=== PATIENT | female | born 1995 | race Caucasian/White ===

== ENCOUNTER 2016-12-04 23:50 | Emergency (ER) | payer OTHER ==
[~2016-12-04 23:50] MED LIST: MOTR200T44 PO; NORC5TAB PO; PREN1TAB11 PO; TYLE325T5 PO
--- NOTE | 2016-12-05 01:04 | EDDOCDS ---
Physician Documentation [facility] Name: Jon Shane Age: 21 yrs Sex: Female : 1995 Arrival Date: 12/04/2016 Time: 23:50 Bed I1 / M1 Private MD: Sarai Murphy NP Disposition: 12/05/16 00:54 Discharged to Home/Self Care. Impression: Headache - ingrown hair of scalp . - Condition is Stable. - Discharge Instructions: General Headache Without Cause, Ingrown Hair. - Medication Reconciliation, Local Pharmacy Hours form. - Follow up: Sarai Murphy; When: Call to arrange an appointment; Reason: Recheck today's complaints, Continuance of care. - Problem is new. - Symptoms are unchanged. Historical: - Allergies: PENICILLINS (Rash); - Home Meds: 1. none - PMHx: ADHD; Seizures; - PSHx: D & C; Tonsillectomy; - Social history: Smoking status: Patient uses tobacco products, heavy tobacco smoker. No barriers to communication noted, The patient speaks fluent Italian. - Family history: Not pertinent. - : The pt / caregiver states he / she is not on anticoagulants. Home medication list is obtained from the patient. - Exposure Risk Screening:: None identified. 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 4 in. (162.56 cm) (R); Pain 8/10; 23:51 Body Mass Index 36.39 (96.16 kg, 162.56 cm) lr2 Signatures: Shannan Dodge RN RN Mario De La Fuente LPN LPN mf4 Misha Chatman PA PA mo1 MTDD
--- NOTE | 2016-12-05 01:04 | EDDOCDS ---
Nurse's Notes [facility] Name: Jon Shane Age: 21 yrs Sex: Female : 1995 Arrival Date: 12/04/2016 Time: 23:50 Bed I1 / M1 Private MD: Sarai Murphy NP Diagnosis: Headache-ingrown hair of scalp Presentation: 12/04 23:55 Presenting complaint: Patient states: Has small bump on right side of head--has been mcp getting bigger over last week. Has been getting migraine headaches. This patient has no additional risk factors. Adult Sepsis Screening: The patient does not have new or worsening altered mentation. Patient's respiratory rate is less than 22. Systolic blood pressure is greater than 100. Patient has a qSOFA score of 0- Negative Sepsis Screen. Suicide/Homicide risk assessment- the patient denies having any suicidal and/or homicidal ideations and does not present with any other emotional, behavioral or mental health complaints. Status: Patient is not a cooler servicer or dependent. Transition of care: patient was not received from another setting of care. 23:55 Acuity: CASS Level 4 [facility] 23:55 Method Of Arrival: Walkin/Carried/Asstd [facility] Triage Assessment: 23:57 Headache History: This headache is more severe than any previous headaches the patient [facility] has experienced. General: Appears uncomfortable, Behavior is cooperative. Pain: Location: head Pain currently is 9 out of 10 on a pain scale. Pain began week ago. HIV screening NA for this visit Offered previously. Neurological: Level of Consciousness is awake, alert, Reports headache. Respiratory: No deficits noted. Derm: Skin is pink, warm & dry. 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 none - PMHx: ADHD; Seizures; - PSHx: D & C; Tonsillectomy; - Social history: Smoking status: Patient uses tobacco products, heavy tobacco smoker. No barriers to communication noted, The patient speaks fluent Chilean. - Family history: Not pertinent. - : The pt / caregiver states he / she is not on anticoagulants. Home medication list is obtained from the patient. - Exposure Risk Screening:: None identified. Screenin/26 01:01 Screening information is obtained from the patient. Fall risk: No risks identified. mf4 Assistance ADL's: requires no assistance with activities of daily living. Abuse/DV Screen: The patient / caregiver reports he/she is: not in a situation that causes fear, pain or injury. Nutritional screening: No deficits noted. Advance Directives: Unable to assess Advance Directive status due to pt condition. home support is adequate. Assessment: 01:01 Pain: Denies pain. mf4 Vital Signs: 12/04 23:51 BP 135 / 70; Pulse 88; Resp 16; Temp 97.2(O); Pulse Ox 100% on R/A; Weight 96.16 kg lr2 (R); Height 5 ft. 4 in. (162.56 cm) (R); Pain 8/10; 23:51 Body Mass Index 36.39 (96.16 kg, 162.56 cm) lr2 Vitals: 23:51 Log In Time: December 04, 2016 at 23:50. lr2 ED Course: 23:51 Patient visited by Ela Blue. lr2 23:51 Patient moved to Waiting lr2 23:53 Sarai Murphy is Private Physician. lr2 23:53 Patient moved to Pre RCE lr2 23:56 Triage Initiated mcp 23:57 Patient visited by Shannan Dodge RN. [facility] 12/05 00:27 Patient moved to I1 / M1 kmg1 00:39 Misha Chatman PA is PHCP. mo1 00:39 Rich Angeles DO is Attending Physician. mo1 00:46 Patient visited by Misha Chatman PA. mo1 00:54 Sarai Murphy is Referral Physician. mo1 01:01 The patient / caregiver is instructed regarding the plan of care and ED course. mf4 01:01 No IV's were initiated during this patient's visit. No procedures done that require mf4 assistance. Order Results: There are currently no results for this order. Outcome: 00:54 Discharge ordered by Provider. mo1 01:01 Discharge Assessment: Patient awake, alert and oriented x 3. No cognitive and/or mf4 functional deficits noted. Patient verbalized understanding of disposition instructions. patient administered narcotics - no. The following High Risk Discharge criteria are identified: None. Discharged to home ambulatory. Condition: stable. Discharge instructions given to patient, Instructed on discharge instructions, follow up and referral plans. Demonstrated understanding of instructions, Pt was receptive of discharge instructions/ teaching. No special radiology studies were completed. Property sent home with patient. 01:03 Patient left the ED. 4 Signatures: Judy Natarajan RN RN km Shannan Dodge RN RN mcp Ferringo, Michele,MEDICAL CERTIFICATION SPECIALIST MEDICAL CERTIFICATION SPECIALIST 4 Misha Chatman PA PA mo1 Ross, Laura lr2 MTDD
--- NOTE | 2016-12-07 02:04 | EDDOCDS ---
Physician Documentation [facility] Name: Jon Shane Age: 21 yrs Sex: Female : 1995 Arrival Date: 12/04/2016 Time: 23:50 Bed I1 / M1 Private MD: Sarai Murphy NP Disposition: 12/05/16 00:54 Discharged to Home/Self Care. Impression: Headache - ingrown hair of scalp . - Condition is Stable. - Discharge Instructions: General Headache Without Cause, Ingrown Hair. - Medication Reconciliation, Local Pharmacy Hours form. - Follow up: Sarai Murphy; When: Call to arrange an appointment; Reason: Recheck today's complaints, Continuance of care. - Problem is new. - Symptoms are unchanged. Historical: - Allergies: PENICILLINS (Rash); - Home Meds: 1. none - PMHx: ADHD; Seizures; - PSHx: D & C; Tonsillectomy; - Social history: Smoking status: Patient uses tobacco products, heavy tobacco smoker. No barriers to communication noted, The patient speaks fluent Fijian. - Family history: Not pertinent. - : The pt / caregiver states he / she is not on anticoagulants. Home medication list is obtained from the patient. - Exposure Risk Screening:: None identified. 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 4 in. (162.56 cm) (R); Pain 8/10; 23:51 Body Mass Index 36.39 (96.16 kg, 162.56 cm) lr2 MDM: 12/05 02:39 [facility] Payment Agreement was scanned into [employer] and attached to record. hs2 08:20 T-Sheet-- Draft Copy was scanned into [employer] and attached to record. [facility] Signatures: Shannan Dodge RN RN Mario De La Fuente LPN LPN mf4 Misha Chatman PA PA mo1 Kaylee Wilder, Reg Reg hs2 Unique Gardiner se The chart was reviewed and I authenticate all verbal orders and agree with the evaluation and treatment provided.Attachments: 02:39 [facility] Payment Agreement hs2 08:20 T-Sheet-- Draft Copy [facility] Chart Complete MTDD
--- NOTE | 2016-12-07 02:04 | EDDOCDS ---
Nurse's Notes [facility] Name: Jon Shane Age: 21 yrs Sex: Female : 1995 Arrival Date: 12/04/2016 Time: 23:50 Bed I1 / M1 Private MD: Sarai Murphy NP Diagnosis: Headache-ingrown hair of scalp Presentation: 12/04 23:55 Presenting complaint: Patient states: Has small bump on right side of head--has been mcp getting bigger over last week. Has been getting migraine headaches. This patient has no additional risk factors. Adult Sepsis Screening: The patient does not have new or worsening altered mentation. Patient's respiratory rate is less than 22. Systolic blood pressure is greater than 100. Patient has a qSOFA score of 0- Negative Sepsis Screen. Suicide/Homicide risk assessment- the patient denies having any suicidal and/or homicidal ideations and does not present with any other emotional, behavioral or mental health complaints. Status: Patient is not a advisory services associate or dependent. Transition of care: patient was not received from another setting of care. 23:55 Acuity: CASS Level 4 [facility] 23:55 Method Of Arrival: Walkin/Carried/Asstd [facility] Triage Assessment: 23:57 Headache History: This headache is more severe than any previous headaches the patient [facility] has experienced. General: Appears uncomfortable, Behavior is cooperative. Pain: Location: head Pain currently is 9 out of 10 on a pain scale. Pain began week ago. HIV screening NA for this visit Offered previously. Neurological: Level of Consciousness is awake, alert, Reports headache. Respiratory: No deficits noted. Derm: Skin is pink, warm & dry. 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 none - PMHx: ADHD; Seizures; - PSHx: D & C; Tonsillectomy; - Social history: Smoking status: Patient uses tobacco products, heavy tobacco smoker. No barriers to communication noted, The patient speaks fluent Macanese. - Family history: Not pertinent. - : The pt / caregiver states he / she is not on anticoagulants. Home medication list is obtained from the patient. - Exposure Risk Screening:: None identified. Screenin/26 01:01 Screening information is obtained from the patient. Fall risk: No risks identified. mf4 Assistance ADL's: requires no assistance with activities of daily living. Abuse/DV Screen: The patient / caregiver reports he/she is: not in a situation that causes fear, pain or injury. Nutritional screening: No deficits noted. Advance Directives: Unable to assess Advance Directive status due to pt condition. home support is adequate. Assessment: 01:01 Pain: Denies pain. mf4 Vital Signs: 12/04 23:51 BP 135 / 70; Pulse 88; Resp 16; Temp 97.2(O); Pulse Ox 100% on R/A; Weight 96.16 kg lr2 (R); Height 5 ft. 4 in. (162.56 cm) (R); Pain 8/10; 23:51 Body Mass Index 36.39 (96.16 kg, 162.56 cm) lr2 Vitals: 23:51 Log In Time: December 04, 2016 at 23:50. lr2 ED Course: 23:51 Patient visited by Ela Blue. lr2 23:51 Patient moved to Waiting lr2 23:53 Sarai Murphy is Private Physician. lr2 23:53 Patient moved to Pre RCE lr2 23:56 Triage Initiated [facility] 23:57 Patient visited by Shannan Dodge RN. [facility] 12/05 00:27 Patient moved to I1 / M1 kmg1 00:39 Misha Chatman PA is PHCP. mo1 00:39 Rich Angeles DO is Attending Physician. mo1 00:46 Patient visited by Misha Cahtman PA. mo1 00:54 Sarai Murphy is Referral Physician. mo1 01:01 The patient / caregiver is instructed regarding the plan of care and ED course. mf4 01:01 No IV's were initiated during this patient's visit. No procedures done that require mf4 assistance. 02:39 [facility] Payment Agreement was scanned into [employer] and attached to record. hs2 08:20 T-Sheet-- Draft Copy was scanned into [employer] and attached to record. [facility] Order Results: There are currently no results for this order. Outcome: 00:54 Discharge ordered by Provider. mo1 01:01 Discharge Assessment: Patient awake, alert and oriented x 3. No cognitive and/or mf4 functional deficits noted. Patient verbalized understanding of disposition instructions. patient administered narcotics - no. The following High Risk Discharge criteria are identified: None. Discharged to home ambulatory. Condition: stable. Discharge instructions given to patient, Instructed on discharge instructions, follow up and referral plans. Demonstrated understanding of instructions, Pt was receptive of discharge instructions/ teaching. No special radiology studies were completed. Property sent home with patient. 01:03 Patient left the ED. 4 Signatures: Judy Natarajan RN RN km Shannan Dodge RN RN Mario De La Fuente,MERCHANDISING EXECUTION MANAGER MERCHANDISING EXECUTION MANAGER 4 Misha Chatman PA PA mo1 Kaylee Wilder, Reg Reg hs2 [place], Ela Winslow lr2 Chart Complete MTDD
--- NOTE | 2016-12-07 02:04 | EDDOCDS ---
Physician Documentation [facility] Name: Jon Shane Age: 21 yrs Sex: Female : 1995 Arrival Date: 12/04/2016 Time: 23:50 Bed I1 / M1 Private MD: Sarai Murphy NP Disposition: 12/05/16 00:54 Discharged to Home/Self Care. Impression: Headache - ingrown hair of scalp . - Condition is Stable. - Discharge Instructions: General Headache Without Cause, Ingrown Hair. - Medication Reconciliation, Local Pharmacy Hours form. - Follow up: Sarai Murphy; When: Call to arrange an appointment; Reason: Recheck today's complaints, Continuance of care. - Problem is new. - Symptoms are unchanged. Historical: - Allergies: PENICILLINS (Rash); - Home Meds: 1. none - PMHx: ADHD; Seizures; - PSHx: D & C; Tonsillectomy; - Social history: Smoking status: Patient uses tobacco products, heavy tobacco smoker. No barriers to communication noted, The patient speaks fluent Tunisian. - Family history: Not pertinent. - : The pt / caregiver states he / she is not on anticoagulants. Home medication list is obtained from the patient. - Exposure Risk Screening:: None identified. 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 4 in. (162.56 cm) (R); Pain 8/10; 23:51 Body Mass Index 36.39 (96.16 kg, 162.56 cm) lr2 MDM: 12/05 02:39 [facility] [place] Agreement was scanned into [employer] and attached to record. hs2 08:20 T-Sheet-- Draft Copy was scanned into [employer] and attached to record. [facility] Signatures: Shannan Dodge RN RN Mario De La Fuente LPN LPN mf4 Misha Chatman PA PA mo1 Kaylee Wilder, Reg Reg hs2 Unique Gardiner se The chart was reviewed and I authenticate all verbal orders and agree with the evaluation and treatment provided.Attachments: 02:39 [facility] Payment Agreement hs2 08:20 T-Sheet-- Draft Copy [facility] Chart Complete MTDD
== END 2016-12-05 01:03 | disposition home or self-care (01) ==
LOC: M ED 23:50
DX: L73.1 Pseudofolliculitis barbae (principal); F90.9 Attention-deficit hyperactivity disorder, unspecified type; R56.9 Unspecified convulsions; Z72.0 Tobacco use; Z88.0 Allergy status to penicillin

== ENCOUNTER 2017-02-14 16:01 | Emergency (ER) | payer OTHER ==
[~2017-02-14] VITALS: Ht 162.6 cm; Wt 97.1 kg
[~2017-02-14 16:01] MED LIST changes: +NORC1TAB4 PO; -NORC5TAB PO
[2017-02-14 17:52] VITALS: BP 138/65
--- NOTE | 2017-02-15 06:49 | REP ---
Left ankle series: Four views. History: Trauma. Findings: Four views of the left ankle demonstrate intact ankle mortise. No fracture or subluxation is seen. Impression: No abnormality noted. Signed by Daren Estrada MD 02/15/2017 08:25 A
--- NOTE | 2017-02-15 06:50 | REP ---
Left foot series: Four views. History: Trauma. Findings: Four views of the left foot show overall normal mineralization. Bones, joints, and soft tissues are radiographically unremarkable. No fracture or subluxation is seen. Impression: Negative left foot views. Signed by Daren Estrada MD 02/15/2017 08:25 A
== END 2017-02-14 18:13 | disposition home or self-care (01) ==
LOC: M ED 16:48
DX: S83.92XA Sprain of unspecified site of left knee, initial encounter (principal); S93.602A Unspecified sprain of left foot, initial encounter; W10.8XXA Fall (on) (from) other stairs and steps, initial encounter; Y92.099 Unspecified place in other non-institutional residence as the place of occurrence of the external cause; Y93.01 Activity, walking, marching and hiking; Y99.8 Other external cause status; J45.909 Unspecified asthma, uncomplicated; F32.9 Major depressive disorder, single episode, unspecified; Z88.0 Allergy status to penicillin

== ENCOUNTER 2017-03-12 09:01 | Emergency (ER) | payer OTHER ==
[2017-03-12 09:18] VITALS: BP 126/70
[2017-03-12 10:04] LABS: CONTROL LINE HCG INT CTR LINE PRESENT
[2017-03-12 10:38] LABS: BASO % 0.4 % (0.0-1.0); EOS # 0.2 K/mm3 (0.0-0.50); EOS % 2.7 % (0.0-3.0); LARGE UNSTAINED CELL # 0.1 K/mm3 (0.0-0.4); LYMPH # 1.5 K/mm3 (1.5-6.5); LYMPH % 19.1 % (24.0-44.0); MEAN CORPUSCULAR HEMOGLOBIN 28.1 pg (27.0-33.0); MEAN CORPUSCULAR HGB CONC 32.7 g/dl (32.0-36.5); MEAN CORPUSCULAR VOLUME 85.9 fl (80.0-96.0); MONO # 0.5 K/mm3 (0.0-0.8); NEUTROPHILS # 5.4 K/mm3 (1.8-7.7); NEUTROPHILS % 70.9 % (36.0-66.0); PLATELET COUNT, AUTOMATED 259 k/mm3 (150-450); RED CELL DISTRIBUTION WIDTH 13.7 % (11.5-14.5); WHITE BLOOD COUNT 7.6 K/mm3 (4.0-10.0)
== END 2017-03-12 10:22 | disposition home or self-care (01) ==
LOC: EDBD 09:01 → M ED 09:40
DX: N92.0 Excessive and frequent menstruation with regular cycle (principal); J45.909 Unspecified asthma, uncomplicated; Z88.0 Allergy status to penicillin; Z91.013 Allergy to seafood

== ENCOUNTER 2017-03-12 18:25 | Emergency (ER) | payer OTHER ==
[~2017-03-12] VITALS: Ht 162.6 cm; Wt 92.4 kg
[2017-03-12 18:26] VITALS: BP 152/84
== END 2017-03-12 19:52 | disposition left against medical advice (07) ==
LOC: M ED 18:25
DX: Z20.2 Contact with and (suspected) exposure to infections with a predominantly sexual mode of transmission (principal); Z53.29 Procedure and treatment not carried out because of patient's decision for other reasons

== ENCOUNTER 2017-05-18 23:14 | Emergency (ER) | payer OTHER ==
[~2017-05-18] VITALS: Ht 162.6 cm; Wt 86.0 kg
[2017-05-18 23:15] VITALS: BP 126/69
[2017-08-15] MEDS ORDERED: CLEO300C2 PO (01:26)
== END 2017-05-19 01:36 | disposition left against medical advice (07) ==
LOC: M ED 23:14
DX: Z53.29 Procedure and treatment not carried out because of patient's decision for other reasons (principal)

== ENCOUNTER 2017-05-21 22:37 | Emergency (ER) | payer OTHER ==
[~2017-05-21] VITALS: Ht 162.6 cm; Wt 78.1 kg
[2017-05-21 22:39] VITALS: BP 125/67
[2017-05-21] MEDS ORDERED: TYLE500T78 PO (22:44)
[2017-05-21] MEDS ORDERED: CYCL10TA PO (22:58)
[2017-05-21] MEDS ORDERED: NAPR500T PO (22:58)
[2017-05-21] MEDS ORDERED: CARISOPRODOL 350 MG TAB PO ONE (23:00)
[2017-05-21] MEDS ORDERED: NAPROXEN 250 MG TAB PO ONE (23:00)
[2017-08-15] MEDS ORDERED: CLEO300C2 PO (01:26)
== END 2017-05-21 23:10 | disposition home or self-care (01) ==
LOC: M ED 22:37
DX: S39.012A Strain of muscle, fascia and tendon of lower back, initial encounter (principal); X50.9XXA Other and unspecified overexertion or strenuous movements or postures, initial encounter; Y92.019 Unspecified place in single-family (private) house as the place of occurrence of the external cause; Y93.89 Activity, other specified; Y99.8 Other external cause status; J45.909 Unspecified asthma, uncomplicated; F17.200 Nicotine dependence, unspecified, uncomplicated; Z88.0 Allergy status to penicillin; Z88.1 Allergy status to other antibiotic agents; Z91.030 Bee allergy status

== ENCOUNTER 2017-05-22 04:46 | Emergency (ER) | payer OTHER ==
[~2017-05-22 04:46] MED LIST changes: +CYCL10TA PO; +NAPR500T PO; +TYLE500T78 PO
[2017-05-22 04:50] VITALS: BP 120/64
[2017-05-22] MEDS ORDERED: ONDANSETRON 4 MG ORAL DISINTEGRATING TAB (S0181) PO ONE (06:45)
[2017-08-15] MEDS ORDERED: CLEO300C2 PO (01:26)
== END 2017-05-22 07:37 | disposition home or self-care (01) ==
LOC: M ED 04:46
DX: R11.2 Nausea with vomiting, unspecified (principal); T42.8X5A Adverse effect of antiparkinsonism drugs and other central muscle-tone depressants, initial encounter; T39.315A Adverse effect of propionic acid derivatives, initial encounter; Z88.0 Allergy status to penicillin

== ENCOUNTER → 2017-07-05 | Outpatient (CLI) | payer OTHER ==
[~2017-07-05] MED LIST changes: +CLEO300C2 PO
[2017-07-05 19:14] LABS: LUTEINIZING HORMONE 8.6 mIU/mL; PROGESTERONE 2.3 NG/ML
[2017-07-05 19:15] LABS: FOLLICLE STIMULATING HORMONE 6.6 mIU/mL; FREE T4 0.83 NG/DL (0.76-1.46)
== END ==
LOC: M SMT 14:52
PROVIDERS: ATTEND Specialist
DX: N93.8 Other specified abnormal uterine and vaginal bleeding (principal)

== ENCOUNTER → 2017-12-12 | Outpatient (CLI) | payer OTHER ==
[~2017-12-12] MED LIST changes: -CLEO300C2 PO; -CYCL10TA PO; +METHACHOLINE KIT (J7674) INH; -MOTR200T44 PO; -NAPR500T PO; -NORC1TAB4 PO; -PREN1TAB11 PO; -TYLE325T5 PO; -TYLE500T78 PO
[2017-12-12 14:25] LABS: HEMATOCRIT 37.3 % (36.0-47.0); HEMOGLOBIN 12.6 g/dl (12.0-16.0); MEAN CORPUSCULAR HEMOGLOBIN 28.5 pg (27.0-33.0); MEAN CORPUSCULAR HGB CONC 33.8 g/dl (32.0-36.5); MEAN CORPUSCULAR VOLUME 84.4 fl (80.0-96.0); PLATELET COUNT, AUTOMATED 274 10^3/uL (150-450); RED BLOOD COUNT 4.42 10^6/uL (4.00-5.40); WHITE BLOOD COUNT 8.3 10^3/uL (4.0-10.0)
[2017-12-12 15:02] LABS: ESTIMATED AVERAGE GLUCOSE 117 MG/DL (60-110); HEMOGLOBIN A1c 5.7 %
[2017-12-12 15:17] LABS: ALBUMIN 3.6 GM/DL (3.2-5.2); ALBUMIN/GLOBULIN RATIO 1.16 (1.00-1.93); ALKALINE PHOSPHATASE 76 U/L (45-117); ALT/SGPT 17 U/L (12-78); ANION GAP 7 MEQ/L (8-16); AST/SGOT 9 U/L (7-37); BILIRUBIN,TOTAL 0.2 MG/DL (0.2-1.0); BLOOD UREA NITROGEN 4 MG/DL (7-18); CALCIUM LEVEL 8.8 MG/DL (8.5-10.1); CARBON DIOXIDE LEVEL 26 MEQ/L (21-32); CHLORIDE LEVEL 106 MEQ/L (98-107); CHOLESTEROL LEVEL 133 MG/DL (<200); CHOLESTEROL RISK RATIO 3.325 (<5); CREATININE FOR GFR 0.44 MG/DL (0.55-1.30); GLOMERULAR FILTRATION RATE > 60.0 (>60); GLUCOSE, FASTING 79 MG/DL (70-100); HDL CHOLESTEROL 40 MG/DL (>40); LDL CHOLESTEROL 75.8 MG/DL (<100); NON-HDL-C 93 MG/DL; POTASSIUM SERUM 4.3 MEQ/L (3.5-5.1); SODIUM LEVEL 139 MEQ/L (136-145); TOTAL PROTEIN 6.7 GM/DL (6.4-8.2); TRIGLYCERIDES LEVEL 86 MG/DL (<150)
== END ==
LOC: M LAB 13:41
DX: Z87.09 Personal history of other diseases of the respiratory system (principal)
CPT/HCPCS: 94010

== ENCOUNTER 2018-01-03 21:35 | Emergency (ER) | payer OTHER ==
[2018-01-03] MEDS ORDERED: NS 1,000 ML IV (21:45)
[2018-01-03] MEDS: NS 1,000 ML IV (21:45)
[2018-01-03] MEDS: ONDANSETRON 4MG/2ML VIAL (J2405) IV (21:45)
[2018-01-03] MEDS ORDERED: METOCLOPRAMIDE INJ 10MG/2ML VIAL (J2765) IV (21:45)
[2018-01-03 22:35] LABS: BASO # 0.1 10^3/uL (0.0-0.2); BASO % 0.5 % (0.0-1.0); EOS # 0.2 10^3/uL (0.0-0.50); EOS % 1.7 % (0.0-3.0); HEMATOCRIT 38.9 % (36.0-47.0); HEMOGLOBIN 13.1 g/dl (12.0-16.0); IMMATURE GRANULOCYTE % 0.5 % (0-3.0); LYMPH # 2.7 10^3/uL (1.5-6.5); LYMPH % 24.8 % (24.0-44.0); MEAN CORPUSCULAR HEMOGLOBIN 28.6 pg (27.0-33.0); MEAN CORPUSCULAR HGB CONC 33.7 g/dl (32.0-36.5); MEAN CORPUSCULAR VOLUME 84.9 fl (80.0-96.0); MONO # 0.6 10^3/uL (0.0-0.8); MONO % 5.8 % (0.0-5.0); NEUTROPHILS # 7.3 10^3/uL (1.8-7.7); NEUTROPHILS % 66.7 % (36.0-66.0); PLATELET COUNT, AUTOMATED 290 10^3/uL (150-450); RED BLOOD COUNT 4.58 10^6/uL (4.00-5.40); RED CELL DISTRIBUTION WIDTH 14.1 % (11.5-14.5); WHITE BLOOD COUNT 10.9 10^3/uL (4.0-10.0)
[2018-01-03 23:12] LABS: ALBUMIN 3.5 GM/DL (3.2-5.2); ALBUMIN/GLOBULIN RATIO 0.92 (1.00-1.93); ALKALINE PHOSPHATASE 86 U/L (45-117); ALT/SGPT 12 U/L (12-78); ANION GAP 10 MEQ/L (8-16); AST/SGOT 8 U/L (7-37); BILIRUBIN,DIRECT < 0.1 MG/DL (0.0-0.2); BILIRUBIN,TOTAL 0.1 MG/DL (0.2-1.0); BLOOD UREA NITROGEN 5 MG/DL (7-18); CALCIUM LEVEL 8.8 MG/DL (8.5-10.1); CARBON DIOXIDE LEVEL 22 MEQ/L (21-32); CHLORIDE LEVEL 109 MEQ/L (98-107); CREATININE FOR GFR 0.44 MG/DL (0.55-1.30); GLOMERULAR FILTRATION RATE > 60.0 (>60); GLUCOSE, FASTING 76 MG/DL (70-100); HCG, SERUM QUANTITATIVE 62412 MIU/ML; SODIUM LEVEL 141 MEQ/L (136-145); TOTAL PROTEIN 7.3 GM/DL (6.4-8.2)
[2018-01-03 23:50] LABS: KETONE, URINE AUTO RFX TRACE mg/dL (NEGATIVE); MUCUS, URINE RFX SMALL (NEGATIVE); NITRITE, URINE AUTO RFX NEGATIVE (NEGATIVE); RBC, URINE AUTO RFX 12 /HPF (0-3); SPECIFIC GRAVITY UR AUTO RFX 1.021 (1.002-1.035); SQUAM EPITHELIAL CELL UR AURFX 2 /HPF (0-6); WBC, URINE AUTO RFX 2 /HPF (0-3)
[2018-01-03 23:51] LABS: LEUKOCYTE ESTERASE UR AUTO RFX TRACE (NEGATIVE)
== END 2018-01-04 00:36 | disposition home or self-care (01) ==
LOC: M ED 01-04 00:36
DX: O26.891 Other specified pregnancy related conditions, first trimester (principal); O99.331 Smoking (tobacco) complicating pregnancy, first trimester; Z3A.13 13 weeks gestation of pregnancy; Z88.0 Allergy status to penicillin; Z91.030 Bee allergy status
CPT/HCPCS: J2405

== ENCOUNTER → 2018-02-15 | Outpatient (CLI) | payer OTHER ==
[2018-02-15 18:41] LABS: TOTAL 25(OH) VITAMIN D 13.7 NG/ML (30.0-100.0)
[2018-02-15 18:52] LABS: FREE THYROXINE INDEX 3.5 % (1.3-4.8); T UPTAKE 22 % (30-39)
== END ==
LOC: M SMT 13:29
DX: F32.89 Other specified depressive episodes (principal)
CPT/HCPCS: 84443

== ENCOUNTER → 2018-02-15 | Outpatient (CLI) | payer OTHER ==
[2018-02-15 19:29] LABS: BASO % 0.3 % (0.0-1.0); EOS # 0.1 10^3/uL (0.0-0.50); EOS % 1.2 % (0.0-3.0); HEMATOCRIT 36.9 % (36.0-47.0); HEMOGLOBIN 12.3 g/dl (12.0-15.5); IMMATURE GRANULOCYTE % 0.8 % (0-3.0); LYMPH # 1.8 10^3/uL (1.5-6.5); LYMPH % 17.7 % (24.0-44.0); MEAN CORPUSCULAR HEMOGLOBIN 29.6 pg (27.0-33.0); MEAN CORPUSCULAR HGB CONC 33.3 g/dl (32.0-36.5); MEAN CORPUSCULAR VOLUME 88.7 fl (80.0-96.0); MONO # 0.6 10^3/uL (0.0-0.8); MONO % 5.7 % (0.0-5.0); NEUTROPHILS # 7.6 10^3/uL (1.8-7.7); NEUTROPHILS % 74.3 % (36.0-66.0); PLATELET COUNT, AUTOMATED 285 10^3/uL (150-450); RED BLOOD COUNT 4.16 10^6/uL (4.00-5.40); RED CELL DISTRIBUTION WIDTH 14.5 % (11.5-14.5); WHITE BLOOD COUNT 10.3 10^3/uL (4.0-10.0)
[2018-02-15 20:40] LABS: CHLAMYDIA DNA AMPLIFICATION NEGATIVE (NEGATIVE); GC DNA AMPLIFICATION NEGATIVE (NEGATIVE)
[2018-02-17 10:05] LABS: HBsAg Prenatal NEGATIVE (NEGATIVE); RUBELLA IgG QUALITATIVE IMMUNE (IMMUNE)
[2018-02-17 10:19] LABS: HEPATITIS C VIRUS ABY INDEX < 0.0 INDEX (<0.8)
[2018-02-17 10:26] LABS: HIV 1&2 SCREEN CENTAUR NEGATIVE (NEGATIVE)
== END ==
LOC: M SMT 13:26
DX: Z34.81 Encounter for supervision of other normal pregnancy, first trimester (principal); Z3A.09 9 weeks gestation of pregnancy
CPT/HCPCS: 86762

== ENCOUNTER → 2018-02-20 | Outpatient (CLI) | payer OTHER | LOC: M RAD 17:54 | DX: Z34.82 Encounter for supervision of other normal pregnancy, second trimester (principal); Z3A.19 19 weeks gestation of pregnancy | CPT/HCPCS: 76811 ==

== ENCOUNTER 2018-03-23 00:10 | Outpatient (CLI) | payer OTHER ==
[2018-03-23 01:52] LABS: APPEARANCE, URINE CLOUDY (CLEAR); BACTERIA, URINE AUTO NEGATIVE (NEGATIVE); BILIRUBIN, URINE AUTO 2+ (NEGATIVE); BLOOD, URINE BLOOD 1+ (NEGATIVE); CALCIUM OXALATE CRYSTALS LARGE; COLOR, URINE AMBER (YELLOW); GLUCOSE, URINE (UA) AUTO NEGATIVE (NEGATIVE); KETONE, URINE AUTO TRACE mg/dL (NEGATIVE); LEUKOCYTE ESTERASE, URINE AUTO TRACE (NEGATIVE); MUCUS, URINE LARGE (NEGATIVE); NITRITE, URINE AUTO NEGATIVE (NEGATIVE); PROTEIN, URINE AUTO 1+ mg/dL (NEGATIVE); RBC, URINE AUTO 14 /HPF (0-3); SPECIFIC GRAVITY URINE AUTO 1.034 (1.002-1.035); SQUAMOUS EPITHELIAL CELL UR AU 19 /HPF (0-6); WBC, URINE AUTO 1 /HPF (0-3)
== END 2018-03-23 04:10 | disposition home or self-care (01) ==
LOC: M LDO 00:10
DX: O26.892 Other specified pregnancy related conditions, second trimester (principal); R10.30 Lower abdominal pain, unspecified; O26.852 Spotting complicating pregnancy, second trimester; Z3A.23 23 weeks gestation of pregnancy
CPT/HCPCS: 81001

== ENCOUNTER → 2018-04-03 | Outpatient (CLI) | payer OTHER | LOC: M RAD 11:35 | DX: Z34.83 Encounter for supervision of other normal pregnancy, third trimester (principal); Z3A.25 25 weeks gestation of pregnancy | CPT/HCPCS: 76816 ==

== ENCOUNTER → 2018-04-05 | Outpatient (CLI) | payer OTHER | LOC: M RAD 17:56 | DX: M79.644 Pain in right finger(s) (principal); Z3A.25 25 weeks gestation of pregnancy | CPT/HCPCS: 73130 ==

== ENCOUNTER → 2018-06-20 | Outpatient (REF) | payer OTHER | LOC: M LAB REF 17:31 | DX: Z34.83 Encounter for supervision of other normal pregnancy, third trimester (principal) ==

== ENCOUNTER 2018-07-05 18:25 | Outpatient (CLI) | payer OTHER | END 2018-07-05 19:40 | disposition home or self-care (01) | LOC: M LDO 18:25 | DX: O26.893 Other specified pregnancy related conditions, third trimester (principal); Z3A.37 37 weeks gestation of pregnancy | CPT/HCPCS: 59025 ==

== ENCOUNTER 2018-07-10 16:05 | Inpatient (IN) | payer OTHER ==
[2018-07-10] MEDS: miSOPROStol 50 MCG 1/2 TAB (S0191) PO ×2 (17:25→21:37)
[2018-07-10 17:53] LABS: HEMATOCRIT 35.4 % (36.0-47.0); HEMOGLOBIN 11.7 g/dl (12.0-15.5); MEAN CORPUSCULAR HGB CONC 33.1 g/dl (32.0-36.5); MEAN CORPUSCULAR VOLUME 87.6 fl (80.0-96.0); PLATELET COUNT, AUTOMATED 299 10^3/uL (150-450); RED BLOOD COUNT 4.04 10^6/uL (4.00-5.40); RED CELL DISTRIBUTION WIDTH 13.9 % (11.5-14.5); WHITE BLOOD COUNT 11.1 10^3/uL (4.0-10.0)
[2018-07-10 19:08] LABS: AMPHETAMINES URINE REFLEX NEGATIVE (NEGATIVE); BARBITURATES URINE REFLEX NEGATIVE (NEGATIVE); BENZODIAZEPINES URINE REFLEX NEGATIVE (NEGATIVE); CANNABINOIDS URINE REFLEX NEGATIVE (NEGATIVE); COCAINE METABOLITE URINE REFLE NEGATIVE (NEGATIVE); METHADONE URINE REFLEX NEGATIVE (NEGATIVE); OPIATES URINE REFLEX NEGATIVE (NEGATIVE); PHENCYCLIDINE URINE REFLEX NEGATIVE (NEGATIVE)
[2018-07-10] MEDS: NICOTINE 21MG/24HR 1 EA TRANSDERMAL TD (19:34)
[2018-07-10] MEDS ORDERED: LR 1,000 ML IV (23:52)
[2018-07-11] MEDS: OXYTOCIN DRIP 30 UNITS in APPROPRIATE DILUENT 1 EA IV (02:02)
[2018-07-11] MEDS: BUTORPHANOL 2 MG/ML INJ (J0595) IV (05:03)
[2018-07-11] MEDS: PROMETHAZINE INJ 25 MG/ML VIAL (J2550) IV (05:03)
[2018-07-11] MEDS ORDERED: OXYTOCIN DRIP 30 UNITS in APPROPRIATE DILUENT 1 EA IV (06:01)
[2018-07-11] MEDS ORDERED: METHYLERGONOVINE MALEATE 0.2 MG TAB PO (06:15)
[2018-07-11] MEDS ORDERED: ANUSOL HC CREAM 30GM TOP (06:15)
[2018-07-11] MEDS ORDERED: DOCUSATE SODIUM 100 MG CAP PO (06:15)
[2018-07-11] MEDS: MEASLES,MUMPS,RUBELLA VACCINE INJ (MMR-II) (90707) SC (08:12)
[2018-07-11] MEDS: RHOGAM 300 MCG (1500 IU) INJ (J2790) IM (08:13)
[2018-07-11] MEDS: PRENATAL VITAMINS CHEWABLE TABLET PO (08:21)
[2018-07-11] MEDS: DIBUCAINE 1% OINTMENT 30GM TOP (08:22)
[2018-07-11] MEDS ORDERED: ceFAZolin SOD 1 GM in D5W MINI-BAG PLUS 50 ML IV (13:00)
[2018-07-11] MEDS: IBUPROFEN 800 MG TAB PO (16:19)
[2018-07-12] MEDS: PRENATAL VITAMINS CHEWABLE TABLET PO (07:53)
[2018-07-12] MEDS: ACETAMINOPHEN 500 MG TAB PO ×2 (07:54→18:36)
[2018-07-12] MEDS: IBUPROFEN 800 MG TAB PO (13:48)
== END 2018-07-12 18:45 | disposition home or self-care (01) | DRG 560 ==
LOC: M LDI 16:05 → M OBS 07-11 08:02
PROVIDERS: Advanced Practice Midwife
PROC: 3E0DXGC Introduction of Other Therapeutic Substance into Mouth and Pharynx, External Approach (ICD-10-PCS; 2018-07-10)
PROC: 10E0XZZ Delivery of Products of Conception, External Approach (ICD-10-PCS; principal; 2018-07-11)
DX: O99.334 Smoking (tobacco) complicating childbirth (principal); E55.9 Vitamin D deficiency, unspecified; O99.344 Other mental disorders complicating childbirth; Z3A.39 39 weeks gestation of pregnancy; Z37.0 Single live birth; F32.9 Major depressive disorder, single episode, unspecified; F17.210 Nicotine dependence, cigarettes, uncomplicated; Z88.1 Allergy status to other antibiotic agents; Z91.040 Latex allergy status; Z79.899 Other long term (current) drug therapy; O69.81X0 Labor and delivery complicated by cord around neck, without compression, not applicable or unspecified; O99.824 Streptococcus B carrier state complicating childbirth

== ENCOUNTER 2019-09-04 11:55 | Emergency (ER) | payer OTHER ==
[~2019-09-04] VITALS: Ht 162.6 cm; Wt 85.7 kg
[~2019-09-04 11:55] MED LIST changes: +ACET1TAB55 PO; +CLEO300C2 PO; +CYCL10TA PO; +IBUP-1114 PO; +MACR100C43 PO; +MAPA500C PO; -METHACHOLINE KIT (J7674) INH; +MOTR200T44 PO; +NAPR-837 PO; +NORC1TAB7 PO; +PREN1TAB11 PO; +PRENTAB55 PO; +TYLE325T5 PO; +TYLE500T78 PO
[2019-09-04 12:18] VITALS: BP 134/75
[2019-09-04] MEDS ORDERED: NAPR-837 PO (12:22)
[2019-09-04] MEDS ORDERED: CYCL10TA PO (12:22)
== END 2019-09-04 12:35 | disposition home or self-care (01) ==
LOC: M ED 11:55
DX: M54.5 Low back pain (principal); M62.830 Muscle spasm of back; F31.9 Bipolar disorder, unspecified; F17.200 Nicotine dependence, unspecified, uncomplicated; Z88.0 Allergy status to penicillin; Z91.040 Latex allergy status

== ENCOUNTER 2019-11-15 11:40 | Emergency (ER) | payer OTHER ==
--- NOTE | 2019-11-15 12:26 | REP ---
Left foot four views : Comparison is 02/14/2017. There is no fracture or dislocation. Mineralization and joint spaces are normal. There are no calcifications or foreign bodies. Impression: Negative left foot . There is no interval change. Electronically Signed by Romulo Doyle MD 11/15/2019 12:18 P
[2019-11-15 14:47] VITALS: BP 137/59
== END 2019-11-15 14:48 | disposition home or self-care (01) ==
LOC: M ED 11:40
DX: S90.32XA Contusion of left foot, initial encounter (principal); W22.8XXA Striking against or struck by other objects, initial encounter; Y92.018 Other place in single-family (private) house as the place of occurrence of the external cause; J45.909 Unspecified asthma, uncomplicated; Z88.0 Allergy status to penicillin; Z91.030 Bee allergy status; Z91.040 Latex allergy status; F17.210 Nicotine dependence, cigarettes, uncomplicated

== ENCOUNTER → 2019-12-02 | Outpatient (REF) | payer OTHER | LOC: M LAB REF 14:58 | PROVIDERS: ATTEND Physician Assistant Medical | DX: J06.9 Acute upper respiratory infection, unspecified (principal) ==

== ENCOUNTER → 2020-02-12 | Outpatient (REF) | payer OTHER ==
[~2020-02-12] MED LIST changes: +CYCL-707 PO; -CYCL10TA PO
[2020-02-12 14:47] LABS: HEMATOCRIT 38.3 % (36.0-47.0); HEMOGLOBIN 12.4 g/dl (12.0-15.5); MEAN CORPUSCULAR HEMOGLOBIN 27.9 pg (27.0-33.0); MEAN CORPUSCULAR HGB CONC 32.4 g/dl (32.0-36.5); MEAN CORPUSCULAR VOLUME 86.3 fl (80.0-96.0); PLATELET COUNT, AUTOMATED 289 10^3/uL (150-450); RED BLOOD COUNT 4.44 10^6/uL (4.00-5.40); WHITE BLOOD COUNT 12.7 10^3/uL (4.0-10.0)
[2020-02-12 16:02] LABS: CHLAMYDIA DNA AMPLIFICATION NEGATIVE (NEGATIVE); GC DNA AMPLIFICATION NEGATIVE (NEGATIVE)
[2020-02-13 10:44] LABS: HEPATITIS B SURFACE ANTIGEN NEGATIVE (NEGATIVE); HIV 1&2 SCREEN CENTAUR NEGATIVE (NEGATIVE)
== END ==
LOC: M PLALAB 13:18
PROVIDERS: ATTEND Specialist
DX: Z34.81 Encounter for supervision of other normal pregnancy, first trimester (principal)

== ENCOUNTER → 2020-04-01 | Outpatient (CLI) | payer OTHER ==
--- NOTE | 2020-04-01 12:44 | REP ---
OBSTETRIC SONOGRAPHY: HISTORY: Supervision of for anatomy. FINDINGS: Scanning through the gravid uterus demonstrates a single living intrauterine gestation in a variable lie. motion is observed and heart rate is recorded at 152 beats per minute. A grade 1 posterior placenta is seen without evidence of previa or abruption. Amniotic fluid is subjectively normal. Closed cervical length is measured transabdominally at 3.3 cm. No extrauterine abnormalities observed. Question circumvallate placenta configuration. No anomaly is seen. Four-chamber heart view is less than optimally achieved due to position. The following additional anatomic structures are identified and felt to be unremarkable: cranium, choroid plexus, cavum, cerebellum and posterior fossa, nuchal fold face and profile, left and right ventricular outflow tract views, diaphragm, left-sided stomach, abdominal wall cord insertion, three-vessel cord, kidneys and bladder, spine, upper and lower extremities. BIOMETRY CHART: BPD 4.4 cm = 19 weeks 2 days HC 16.9 cm = 19 weeks 4 days AC 15.8 cm = 21 weeks 0 days FL 3.1 cm = 19 weeks 5 days HL 3.0 cm = 19 weeks 5 days HC/AC ratio normal 1.07 Cephalic index normal 0.71. Estimated weight 343 grams, 0 pounds 12 ounces, 80th percentile for 19 weeks 3 days. IMPRESSION: Viable single intrauterine gestation at 20 weeks 2 days by today's composite sonographic criteria. LEONARDO by today's sonography August 17, 2020. Four-chamber heart view less than optimally achieved due to position.
== END ==
LOC: M WHC 08:37
PROVIDERS: ATTEND Specialist
DX: Z34.82 Encounter for supervision of other normal pregnancy, second trimester (principal); Z36.89 Encounter for other specified antenatal screening; Z3A.19 19 weeks gestation of pregnancy

== ENCOUNTER → 2020-05-08 | Outpatient (CLI) | payer OTHER ==
[~2020-05-08] MED LIST changes: +ACET-683 PO; +IBUP80TA PO; +TUMSCHW16 PO
--- NOTE | 2020-06-30 06:53 | REP ---
FOLLOW-UP OBSTETRIC ULTRASOUND FOR REEVALUATION OF THE HEART COMPARISON: On the prior obstetric ultrasound dated 04/01/2020, the heart could not be optimally imaged. The remainder of the anatomy was unremarkable. Delay in reporting results from malfunction of the hospital computer system as the result of a malware attack. There is again a single intrauterine gestation. The fetus is in a breech presentation. The placenta is posterior. There is no previa. Placental maturity is grade 1. Gestational age by todays ultrasound is 25 weeks 6 days with an estimated date of confinement (EDC) of 08/15/2020. weight is 903 grams. This corresponds to a weight percentile of 94%. Subjectively the amniotic fluid is normal. Cervix measures 3.3 cm in length. The heart is adequately demonstrated today and there is a normal four chamber view of the heart. The right and left ventricular outflow tracts are unremarkable. On the study today, the spine, upper extremities, cord insertion, and face and lips are suboptimally demonstrated. However, these structures were adequately demonstrated previously and were unremarkable. IMPRESSION: There are no anomalies. The four chamber view of the heart is unremarkable. The right and left ventricular outflow tracts are unremarkable. MTDD
== END ==
LOC: M WHC 09:44
PROVIDERS: ATTEND Nurse Practitioner Women's Health
DX: Z34.82 Encounter for supervision of other normal pregnancy, second trimester (principal); Z3A.21 21 weeks gestation of pregnancy

== ENCOUNTER 2020-07-25 15:12 | Outpatient (CLI) | payer OTHER ==
[~2020-07-25 15:12] MED LIST changes: -ACET-683 PO; -IBUP80TA PO; -TUMSCHW16 PO
[2020-07-25 15:22] VITALS: BP 117/83
[2020-07-25] MEDS ORDERED: TUMSCHW16 PO (15:25)
[2020-07-25] MEDS ORDERED: LACTATED RINGER'S 1000 ML IV ONE (15:45)
--- NOTE | 2020-07-25 15:46 | IPNPDOC ---
Text Note Date of Service The patient was seen on 07/25/20. NOTE Outpatient Jon is a 25y/o who arrived via ambulance. Reports pelvic pressure and pain that increased while she was walking to her daughter's therapy appointment today. She was in a lot of pain when she got to the therapy office and they called the ambulance for her. Denies LOF or vaginal bleeding. Reports good movement. Reports not eating or drinking much water today. Category 1 FHT, FHR 130bpm, UC every 2-4min, 60-100sec., mild on palpation. SVE /-2 by ILIR Rain with informed consent. Plan to start IV hydration with 500mL bolus of LR and then 200mL/hr. Collect GBS culture today. Will reevaluate in 2hrs. VS,Fishbone, I+O VS, Fishbone, I+O Vital Signs Date Time Temp Pulse Resp B/P (MAP) Pulse Ox O2 Delivery O2 Flow Rate FiO2 07/25/20 15:30 106 98 Room Air 07/25/20 15:22 97.2 20 117/83 (94) Estrella Arrieta CNM Jul 25, 2020 15:46
[2020-07-25] MEDS ORDERED: LR 1,000 ML IV SCH (16:00)
[2020-07-25 16:32] VITALS: BP 120/73
[2020-07-25 16:48] LABS: HEMATOCRIT 35.3 % (36.0-47.0); HEMOGLOBIN 11.6 g/dl (12.0-15.5); MEAN CORPUSCULAR HGB CONC 32.9 g/dl (32.0-36.5); MEAN CORPUSCULAR VOLUME 85.3 fl (80.0-96.0); PLATELET COUNT, AUTOMATED 313 10^3/uL (150-450); RED BLOOD COUNT 4.14 10^6/uL (4.00-5.40); WHITE BLOOD COUNT 15.8 10^3/uL (4.0-10.0)
[2020-07-25 16:57] LABS: APPEARANCE, URINE HAZY (CLEAR); BACTERIA, URINE AUTO 1+ (NEGATIVE); BILIRUBIN, URINE AUTO NEGATIVE (NEGATIVE); BLOOD, URINE BLOOD 1+ (NEGATIVE); COLOR, URINE YELLOW (YELLOW); GLUCOSE, URINE (UA) AUTO NEGATIVE (NEGATIVE); KETONE, URINE AUTO TRACE mg/dL (NEGATIVE); LEUKOCYTE ESTERASE, URINE AUTO 3+ (NEGATIVE); MUCUS, URINE SMALL (NEGATIVE); NITRITE, URINE AUTO NEGATIVE (NEGATIVE); PROTEIN, URINE AUTO NEGATIVE (NEGATIVE); RBC, URINE AUTO 2 /HPF (0-3); SPECIFIC GRAVITY URINE AUTO 1.014 (1.002-1.035); SQUAMOUS EPITHELIAL CELL UR AU 5 /HPF (0-6); UROBILINOGEN, URINE AUTO 0.2 mg/dL (0.0-2.0); WBC, URINE AUTO 8 /HPF (0-3)
[2020-07-25] MEDS ORDERED: PHENAZOPYRIDINE 100 MG TAB PO SCH (17:15)
[2020-07-25] MEDS ORDERED: CEPHALEXIN 500 MG CAP PO SCH (17:15)
--- NOTE | 2020-07-25 17:18 | IPNPDOC ---
Text Note Date of Service The patient was seen on 07/25/20. NOTE Outpatient Patient reports decreased pain with IV hydration. Category 1 FHT, FHR baseline 130bpm. UC, none on toco, reports mild, irregular contractions. SVE 50/-3, posterior, unchanged. Labs show elevated WBC 15.8, Urinalysis shows trace ketones, 3+ leuk esterase, +1 blood, WBC 8, and bacteria +1. Assessment: Urinary Tract Infection Plan to discharge home with order for Keflex 500mg BID PO for 7 days and Pyridium 200mg TID PO for 2 days, both to start today. Urine culture ordered. RTO on 07/28/20 for scheduled appointment. VS,Fishbone, I+O VS, Fishbone, I+O Laboratory Tests 07/25/20 15:57 Vital Signs Date Time Temp Pulse Resp B/P (MAP) Pulse Ox O2 Delivery O2 Flow Rate FiO2 07/25/20 16:32 91 20 120/73 (89) 07/25/20 15:30 98 Room Air 07/25/20 15:22 97.2 Estrella Arrieta CNM Jul 25, 2020 17:18
[2020-07-25 17:53] VITALS: BP 109/64
== END 2020-07-25 18:05 | disposition home or self-care (01) ==
LOC: M LDO 15:12
PROVIDERS: ATTEND Advanced Practice Midwife
DX: O23.43 Unspecified infection of urinary tract in pregnancy, third trimester (principal); Z3A.35 35 weeks gestation of pregnancy

== ENCOUNTER 2020-08-04 03:11 | Inpatient (IN) | payer OTHER ==
[~2020-08-04] VITALS: Ht 162.6 cm; Wt 89.8 kg
[~2020-08-04 03:11] MED LIST changes: +TUMSCHW16 PO
[2020-08-04 04:38] LABS: HEMATOCRIT 31.8 % (36.0-47.0); HEMOGLOBIN 10.4 g/dl (12.0-15.5); MEAN CORPUSCULAR HEMOGLOBIN 27.6 pg (27.0-33.0); MEAN CORPUSCULAR HGB CONC 32.7 g/dl (32.0-36.5); MEAN CORPUSCULAR VOLUME 84.4 fl (80.0-96.0); PLATELET COUNT, AUTOMATED 315 10^3/uL (150-450); RED BLOOD COUNT 3.77 10^6/uL (4.00-5.40); WHITE BLOOD COUNT 12.5 10^3/uL (4.0-10.0)
[2020-08-04 04:43] VITALS: BP 169/78
[2020-08-04] MEDS ORDERED: OXYTOCIN 30 UNITS IN 0.9% NaCl 500ML IV BAG (J2590) As Ordered ONE (04:44)
[2020-08-04] MEDS ORDERED: LR 1,000 ML IV SCH (04:45)
[2020-08-04] MEDS ORDERED: BUTORPHANOL 2 MG/ML INJ (J0595) IV ONE (04:45)
[2020-08-04] MEDS ORDERED: LACTATED RINGER'S 1000 ML IV STA (04:45)
[2020-08-04] MEDS ORDERED: PROMETHAZINE INJ 25 MG/ML VIAL (J2550) IV ONE (04:45)
[2020-08-04 04:56] VITALS: BP 162/79
[2020-08-04 05:00] VITALS: BP 152/70
[2020-08-04 05:11] VITALS: BP 150/75
[2020-08-04] MEDS ORDERED: OXYTOCIN DRIP 30 UNITS in IV 1 EA IV SCH (05:17)
--- NOTE | 2020-08-04 05:17 | HPEPDOC ---
Obstetrical History & Physical General Date of Admission Aug 04, 2020 at 04:16 History of Present Illness Patient complains of large loss of fluid and painful uterine contractions. +VB. Reports +FM. Chief Complaint: Contractions, term, LOF, term Information Provided By: Patient, RN/MD Age: 25 : 3 Term: 2 Pre-term: 0 Abortions: 0 Livin Care Care: Good Care Dating Final EDC for Daily Update: Aug 04, 2020 Final EDC by: 1st trimester (US) Weeks + Days: 37.2 Antepartum Course Diagnos(e)s Smoking during Depression/anxiety Past Medical History Past Obstetrical History #1: Date of Delivery: Nov 12, 2015 Gestation: 40 Type of Delivery: Spontaneous Vaginal Del. Sex of Infant: Female Complications: No Past Obstetrical History #2: Date of Delivery: Jul 11, 2018 Gestation: 40 Type of Delivery: Spontaneous Vaginal Del. 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 Surgical History: Dilatation and Curettage Family History Significant Family History: Cancer (Mother , breast CA (age 39)) Social History Psychosocial History: Anxiety, Att. deficit disorder, Bipolar, Srini SI and HI * Smoker: current smoker Alcohol: Denies Drugs: denies Abuse Violence Screening Have you been hit/kicked/slapp: No Have you been sexually assault: No Allergies Coded Allergies: amoxicillin (Verified Allergy, Intermediate, hives, 09/04/19) bee venom protein (honey bee) (Verified Allergy, Intermediate, hives, 09/04/19) latex (Verified Allergy, Intermediate, rash, 09/04/19) penicillin G (Verified Allergy, Intermediate, rash, 09/04/19) Medications Scheduled PRN Calcium Carbonate (Tums Smoothies) 300 Mg Tab.chew, 2 TABS PO Q6HP PRN for INDIGESTION Physical Examination Physical Examination GENERAL: Alert and oriented times three. BREAST: . ABDOMEN: Gravid and non-tender to touch. FETUS: Is vertex (VTX) by sterile vaginal examination (SVE), fetus is vertex (VTX) by [place]. HEART RATE: Regular rate and rhythm. LUNGS: Clear to auscultation (CTA). EXTREMITIES: No edema. No clonus. Deep tendon reflexes (DTRs) + . Laboratory Data [facility] Laboratory Tests 2 08/04/20 03:58: Nucleated Red Blood Cells % (auto) 0.0 08/04/20 04:33: Serology Scanned Report Hepatitis B Testing CBC/BMP Laboratory Tests 08/04/20 03:58 Pertinent Laboratoy Data Blood Type: O+ RBC Antibody Screen: Negative HIV: Negative Hepatitis B: Negative Hepatitis C: Negative Rapid Plasma Reagin: Immune Rubella: Immune Varicella: Immune Chlamydia/Gonorrhea: Negative Group B Streptococcus: Negative Vaginal Examination Dilation: 6 cm Effacement: 100% Station: -1, 0 Cervical Consistency: Soft Cervical Position: Anterior Presentation: Cephalic presentation Assessment Heart Rate (FHR): 135 Variability: Moderate Accelerations: Positive Decelerations: None Tocometer Frequency: every 1-3 min. Assessment/Plan Assessment 25-year old at 37+2 weeks gestation. Dx:. Active labor at term with spontaneous ruptured membranes. Reassuring maternal and status. Plan Admit and orient. Routine labs/orders Group B Streptococcus (GBS) negative. Augment labor with Pitocin as needed Mode of delivery plan: ; as indicated. MONTSERRAT PEARSON DO Aug 04, 2020 05:17
--- NOTE | 2020-08-04 05:23 | DNPDOC ---
[facility] Delivery Note Delivery Note DATE OF DELIVERY: 08/04/2020 TIME OF DELIVERY: 0451 Spontaneous vaginal delivery. MEDICAL RECORD CLERK: Dr. Fernando Jaeger DO FACOG ANESTHESIA: None LACERATION: None ESTIMATED BLOOD LOSS:. 200 mL. FINDINGS: 7 pound 15 ounce (3590 g) Male infant, Score 8 and 9. DELIVERY SUMMARY: The active phase and second stage of labor progressed in normal fashion.. She received Pitocin augmentation throughout her labor course. The head delivered in the EDIL position, and restituted LOT. No nuchal cord was noted. The anterior shoulder delivered with gentle downward guidance and the remainder of the body delivered with ease. The baby was placed on the patient's chest. Delayed cord clamping occurred for approximately 1 minute. The cord was then doubly clamped and cut. IV Pitocin was bolused to actively manage the th ird stage of labor. The placenta delivered intact without any difficulty within 10 minutes of delivery. The uterine fundus was noted to be firm and 2 cm below the umbilicus. The cervix, vagina, vulva and perineum were inspected. Excellent hemostasis was noted. Sponge, needle and instrument counts were correct per protocol. DO CORTNEY Roberts JONATHAN R. DO Aug 04, 2020 05:23
[2020-08-04] MEDS ORDERED: IBUPROFEN 600MG TAB PO PRN (05:30)
[2020-08-04] MEDS ORDERED: DIBUCAINE 1% OINTMENT 30GM TOP PRN (05:30)
[2020-08-04] MEDS ORDERED: DOCUSATE SODIUM 100 MG CAP PO PRN (05:30)
[2020-08-04] MEDS ORDERED: MEASLES,MUMPS,RUBELLA VACCINE INJ (MMR-II) (90707) SC SCH (05:30)
[2020-08-04] MEDS ORDERED: ONDANSETRON 4MG/2ML VIAL IV PRN (05:30)
[2020-08-04] MEDS ORDERED: METHYLERGONOVINE MALEATE 0.2 MG TAB PO PRN (05:30)
[2020-08-04] MEDS ORDERED: PROMETHAZINE 25 MG TAB PO PRN (05:30)
[2020-08-04] MEDS ORDERED: RHOGAM 300 MCG (1500 IU) INJ (J2790) IM SCH (05:30)
[2020-08-04] MEDS ORDERED: ACETAMINOPHEN 500 MG TAB PO PRN (05:30)
[2020-08-04] MEDS ORDERED: IBUPROFEN 800 MG TAB PO PRN (05:30)
[2020-08-04 06:36] VITALS: BP 117/72
[2020-08-04] MEDS: ACETAMINOPHEN TAB 650MG DOSE (2X325MG) PO PRN ×2 (07:18→15:27)
[2020-08-04] MEDS: PRENATAL VITAMINS CHEWABLE TABLET PO SCH (08:48)
[2020-08-04 17:43] VITALS: BP 107/56
[2020-08-05] MEDS ORDERED: ACET-683 PO (05:27)
[2020-08-05] MEDS ORDERED: IBUP80TA PO (05:27)
[2020-08-05 06:00] VITALS: BP 112/55
[2020-08-05 07:40] VITALS: BP 112/55
[2020-08-05] MEDS: PRENATAL VITAMINS CHEWABLE TABLET PO SCH (09:00)
== END 2020-08-05 13:20 | disposition home or self-care (01) | DRG 560 ==
LOC: M LDO 03:11 → M LDI 04:16 → M OBS 06:24
PROVIDERS: ADMIT Obstetrics & Gynecology; ATTEND Obstetrics & Gynecology
PROC: 10E0XZZ Delivery of Products of Conception, External Approach (ICD-10-PCS; principal; 2020-08-04)
DX: O99.334 Smoking (tobacco) complicating childbirth (principal); F17.210 Nicotine dependence, cigarettes, uncomplicated; Z3A.37 37 weeks gestation of pregnancy; Z37.0 Single live birth

== ENCOUNTER → 2021-05-28 | Outpatient (CLI) | payer OTHER ==
[~2021-05-28] MED LIST changes: +ACET-683 PO; +IBUP80TA PO
[2021-05-28 17:29] LABS: BASO # 0.1 10^3/uL (0.0-0.2); BASO % 0.7 % (0.0-1.0); EOS # 0.1 10^3/uL (0.0-0.5); EOS % 1.3 % (0.0-3.0); HEMATOCRIT 37.2 % (36.0-47.0); HEMOGLOBIN 11.9 g/dl (12.0-15.5); LYMPH # 1.9 10^3/uL (1.5-5.0); LYMPH % 19.5 % (24.0-44.0); MEAN CORPUSCULAR HEMOGLOBIN 26.7 pg (27.0-33.0); MEAN CORPUSCULAR VOLUME 83.4 fl (80.0-96.0); MONO # 0.6 10^3/uL (0.0-0.8); MONO % 5.8 % (2.0-8.0); PLATELET COUNT, AUTOMATED 327 10^3/uL (150-450); RED BLOOD COUNT 4.46 10^6/uL (4.00-5.40); WHITE BLOOD COUNT 9.7 10^3/uL (4.0-10.0)
[2021-05-28 18:51] LABS: HEPATITIS C VIRUS ABY INDEX < 0.0 INDEX (<0.8); HIV 1&2 SCREEN CENTAUR NEGATIVE (NEGATIVE)
[2021-05-28 19:50] LABS: HEMOGLOBIN A1c 5.4 %
[2021-05-29 04:57] LABS: GC DNA AMPLIFICATION NEGATIVE (NEGATIVE)
== END ==
LOC: M PLALAB 14:27
PROVIDERS: ATTEND Advanced Practice Midwife
DX: Z36.89 Encounter for other specified antenatal screening (principal); Z3A.12 12 weeks gestation of pregnancy

== ENCOUNTER 2021-06-14 23:57 | Emergency (ER) | payer OTHER ==
[~2021-06-14] VITALS: Ht 162.6 cm; Wt 86.0 kg
[2021-06-15 03:08] LABS: APPEARANCE, URINE CLOUDY (CLEAR); BACTERIA, URINE AUTO 1+ (NEGATIVE); BILIRUBIN, URINE AUTO NEGATIVE (NEGATIVE); BLOOD, URINE BLOOD 3+ (NEGATIVE); COLOR, URINE YELLOW (YELLOW); GLUCOSE, URINE (UA) AUTO NEGATIVE (NEGATIVE); KETONE, URINE AUTO NEGATIVE (NEGATIVE); LEUKOCYTE ESTERASE, URINE AUTO 3+ (NEGATIVE); MUCUS, URINE SMALL (NEGATIVE); NITRITE, URINE AUTO NEGATIVE (NEGATIVE); PROTEIN, URINE AUTO 2+ mg/dL (NEGATIVE); RBC, URINE AUTO TNTC /HPF (0-3); SPECIFIC GRAVITY URINE AUTO 1.024 (1.002-1.035); SQUAMOUS EPITHELIAL CELL UR AU 5 /HPF (0-6); WBC, URINE AUTO 45 /HPF (0-3)
[2021-06-15 04:08] LABS: BASO % 0.4 % (0.0-1.0); EOS # 0.1 10^3/uL (0.0-0.5); EOS % 1.4 % (0.0-3.0); HEMATOCRIT 32.8 % (36.0-47.0); HEMOGLOBIN 10.8 g/dl (12.0-15.5); LYMPH # 2.4 10^3/uL (1.5-5.0); LYMPH % 25.1 % (24.0-44.0); MEAN CORPUSCULAR HEMOGLOBIN 27.3 pg (27.0-33.0); MEAN CORPUSCULAR HGB CONC 32.9 g/dl (32.0-36.5); MONO # 0.6 10^3/uL (0.0-0.8); MONO % 5.8 % (2.0-8.0); NEUTROPHILS # 6.4 10^3/uL (1.5-8.5); NEUTROPHILS % 66.9 % (36.0-66.0); PLATELET COUNT, AUTOMATED 280 10^3/uL (150-450); RED BLOOD COUNT 3.95 10^6/uL (4.00-5.40); WHITE BLOOD COUNT 9.6 10^3/uL (4.0-10.0)
[2021-06-15 04:51] LABS: BLOOD UREA NITROGEN 3 MG/DL (7-18); CARBON DIOXIDE LEVEL 26 MEQ/L (21-32); CHLORIDE LEVEL 109 MEQ/L (98-107); CREATININE FOR GFR 0.34 MG/DL (0.55-1.30); GLOMERULAR FILTRATION RATE > 60.0 (>60); GLUCOSE, FASTING 83 MG/DL (70-100); HCG, SERUM QUANTITATIVE 22668 MIU/ML; POTASSIUM SERUM 3.7 MEQ/L (3.5-5.1); SODIUM LEVEL 139 MEQ/L (136-145)
--- NOTE | 2021-06-15 04:55 | REPVR ---
PROCEDURE INFORMATION: Exam: US First Trimester, Transabdominal Exam date and time: 06/15/2021 3:55 AM Age: 26 years old Clinical indication: Lmp or gestational age (in weeks): 03/01/21; Antepartum complications; Bleeding; ; Additional info: 2nd trimester, bleed TECHNIQUE: Imaging protocol: Real-time transabdominal obstetrical ultrasound of the maternal pelvis and a first trimester , less than 14 weeks 0 days, with image documentation. COMPARISON: US OBS FOLLOW UP OR REPEAT 05/08/2020 1:50 PM FINDINGS: Gestation: Single viable intrauterine gestation. presentation: Breech presentation. Embryonic/ heart rate: heart rate is 155 bpm. Extra-embryonic membranes/Placenta: Anterior placenta. Amniotic fluid: Amniotic fluid is normal for gestational age. BIOMETRY: Gestational age (AUA): Sonographically estimated gestational age is 15 weeks 4 days. Estimated due date (AUA): Estimated date of delivery is. MATERNAL: Uterus: Unremarkable. Cervix: Cervical length is 4.2 cm. Right adnexa: Unremarkable. Left adnexa: Unremarkable. Intraperitoneal space: No intraperitoneal free fluid. IMPRESSION: Single viable intrauterine gestation 15 weeks 4 days of age. No definite subchorionic hemorrhage. Electronically signed by: Sandoval Chapman On 06/15/2021 04:55:07 AM
[2021-06-15 06:23] VITALS: BP 145/64
[2021-06-15 07:03] LABS: GC DNA AMPLIFICATION NEGATIVE (NEGATIVE)
== END 2021-06-15 06:25 | disposition home or self-care (01) ==
LOC: M ED 23:57
DX: O26.852 Spotting complicating pregnancy, second trimester (principal); Z88.1 Allergy status to other antibiotic agents; Z88.0 Allergy status to penicillin; Z91.040 Latex allergy status; Z3A.15 15 weeks gestation of pregnancy; Z91.030 Bee allergy status

== ENCOUNTER → 2021-07-02 | Outpatient (REF) | payer OTHER | LOC: M SFHCWAGY 18:50 | PROVIDERS: ATTEND Advanced Practice Midwife | DX: O99.332 Smoking (tobacco) complicating pregnancy, second trimester (principal) ==

== ENCOUNTER → 2021-07-21 | Outpatient (CLI) | payer OTHER ==
--- NOTE | 2021-07-21 15:22 | REP ---
INDICATION: ANATOMY COMPARISON: 06/15/2021 TECHNIQUE: Transabdominal obstetrical ultrasound with color Doppler evaluation. FINDINGS: Examination demonstrates a single live intrauterine in variable presentation. motion is identified by technologist. Placenta is noted anteriorly and grade 0 without evidence for placenta previa or abruption. Amniotic fluid volume is normal. Cervix measures 3.7 cm in length and appears closed.. Selected gestational age: 20 weeks 4 days with LEONARDO 12/04/2021. Gestational age by current measurements 20 weeks 4 days with LEONARDO 12/04/2021. FHR equals 147 beats per minute. BPD: 4.8 cm at 20 weeks 3 days HC: 17.9 cm at 20 weeks 2 days AC: 16.0 cm at 21 weeks 1 day FL: 3.3 cm at 20 weeks 1 day HL: 3.2 cm at 20 weeks 5 days HC/AC: 1.12 Estimated weight 367 grams (50thpercentile). Anatomical assessment demonstrates normal structures including cranium, cavum, cerebellum/posterior fossa, facial features, lungs, four-chamber right ventricular outflow tract, diaphragm, stomach, cord insertion/three-vessel cord, kidneys/bladder, spine, and extremities. Small left choroid plexus cyst noted. The small bowel appears mildly fluid-filled with suggestions for echogenic wall and subsequent shadowing. Prominent chordae tendineae in the left cardiac ventricle. IMPRESSION: Single live intrauterine in variable presentation demonstrating appropriate estimated weight. Questionable anatomical findings as described above may warrant short-term follow-up. <Electronically signed by Mac Herbert > 07/21/21 [id number]
== END ==
LOC: M WHC 13:50
PROVIDERS: ATTEND Specialist
DX: O99.332 Smoking (tobacco) complicating pregnancy, second trimester (principal)

== ENCOUNTER → 2022-01-25 | Outpatient (CLI) | payer OTHER | LOC: M PLALAB 14:28 | PROVIDERS: ATTEND Specialist | DX: Z34.80 Encounter for supervision of other normal pregnancy, unspecified trimester (principal) ==

== ENCOUNTER → 2022-03-23 | Outpatient (CLI) | payer OTHER | LOC: M WHC 13:46 | PROVIDERS: ATTEND Specialist | DX: Z36.2 Encounter for other antenatal screening follow-up (principal); Z3A.21 21 weeks gestation of pregnancy ==

== ENCOUNTER 2022-07-12 05:16 | Inpatient (IN) | payer OTHER ==
[2022-07-12] VITALS (7 sets, daily range): BP systolic 119–143; BP diastolic 71–88
[~2022-07-12] VITALS: Ht 160 cm; Wt 90.0 kg
[2022-07-12] MEDS ORDERED: OXYTOCIN 30 UNITS IN 0.9% NaCl 500ML IV BAG (J2590) As Ordered ONE (05:23)
[2022-07-12 05:43] LABS: HEMATOCRIT 29.4 % (36.0-47.0); HEMOGLOBIN 8.8 g/dl (12.0-15.5); MEAN CORPUSCULAR HEMOGLOBIN 21.2 pg (27.0-33.0); MEAN CORPUSCULAR HGB CONC 29.9 g/dl (32.0-36.5); MEAN CORPUSCULAR VOLUME 70.8 fl (80.0-96.0); PLATELET COUNT, AUTOMATED 312 10^3/uL (150-450); RED BLOOD COUNT 4.15 10^6/uL (4.00-5.40); WHITE BLOOD COUNT 14.4 10^3/uL (4.0-10.0)
[2022-07-12] MEDS ORDERED: HOME MED LIST COMPLETE! XX SCH (06:00)
[2022-07-12] MEDS ORDERED: OXYTOCIN DRIP 30 UNITS in IV 1 EA IV ONE (06:00)
[2022-07-12] MEDS ORDERED: DOCUSATE SODIUM 100MG CAPSULE PO PRN (06:15)
[2022-07-12] MEDS ORDERED: DIBUCAINE 1% OINTMENT 30GM TOP PRN (06:15)
[2022-07-12] MEDS ORDERED: METHYLERGONOVINE MALEATE 0.2 MG TAB PO PRN (06:15)
[2022-07-12] MEDS ORDERED: RHOGAM 300 MCG (1500 IU) INJ (J2790) IM SCH (06:15)
[2022-07-12] MEDS ORDERED: IBUPROFEN 800 MG TAB PO PRN (06:15)
[2022-07-12] MEDS ORDERED: ACETAMINOPHEN 500 MG TAB PO PRN (06:15)
[2022-07-12] MEDS ORDERED: LR 1,000 ML IV SCH (06:15)
[2022-07-12] MEDS ORDERED: IBUPROFEN 600MG TAB PO PRN (06:15)
[2022-07-12] MEDS ORDERED: ACETAMINOPHEN TAB 650MG DOSE (2X325MG) PO PRN (06:15)
[2022-07-12] MEDS: PRENATAL VITAMINS CHEWABLE TABLET PO SCH (09:00)
[2022-07-12 10:18] LABS: HEPATITIS C VIRUS ABY INDEX < 0.0 INDEX (<0.8); HIV 1&2 SCREEN CENTAUR NEGATIVE (NEGATIVE)
[2022-07-12] MEDS ORDERED: NICOTINE 21MG/24HR 1 EA TRANSDERMAL TD PRN (19:15)
[2022-07-13 05:54] VITALS: BP 106/65
[2022-07-13] MEDS: PRENATAL VITAMINS CHEWABLE TABLET PO SCH (08:21)
[2022-07-14] MEDS ORDERED: MEASLES,MUMPS,RUBELLA VACCINE INJ (MMR-II) (90707) SC.IMMUN ONE (09:00)
== END 2022-07-13 13:48 | disposition home or self-care (01) | DRG 560 ==
LOC: M LDO 05:16 → M LDI 05:26 → M OBS 09:05
PROVIDERS: ADMIT Obstetrics & Gynecology; ATTEND Obstetrics & Gynecology
PROC: 10E0XZZ Delivery of Products of Conception, External Approach (ICD-10-PCS; principal; 2022-07-12)
DX: O62.3 Precipitate labor (principal); F17.210 Nicotine dependence, cigarettes, uncomplicated; Z3A.36 36 weeks gestation of pregnancy; Z37.0 Single live birth; O99.334 Smoking (tobacco) complicating childbirth

== ENCOUNTER 2022-12-12 19:16 | Observation (INO) | payer OTHER ==
[~2022-12-12] VITALS: Ht 162.6 cm; Wt 82.1 kg
[2022-12-12] MEDS ORDERED: NS 1,000 ML IV ONE (19:30)
[2022-12-12 19:49] LABS: BASO # 0.1 10^3/uL (0.0-0.2); BASO % 0.4 % (0.0-1.0); EOS # 0.2 10^3/uL (0.0-0.5); HEMATOCRIT 30.3 % (36.0-47.0); HEMOGLOBIN 9.2 g/dl (12.0-15.5); LYMPH # 2.1 10^3/uL (1.5-5.0); LYMPH % 10.8 % (24.0-44.0); MEAN CORPUSCULAR HEMOGLOBIN 21.2 pg (27.0-33.0); MEAN CORPUSCULAR HGB CONC 30.4 g/dl (32.0-36.5); MEAN CORPUSCULAR VOLUME 69.8 fl (80.0-96.0); MONO # 0.8 10^3/uL (0.0-0.8); MONO % 4.3 % (2.0-8.0); NEUTROPHILS # 16.1 10^3/uL (1.5-8.5); NEUTROPHILS % 82.5 % (36.0-66.0); PLATELET COUNT, AUTOMATED 356 10^3/uL (150-450); RED BLOOD COUNT 4.34 10^6/uL (4.00-5.40); WHITE BLOOD COUNT 19.5 10^3/uL (4.0-10.0)
[2022-12-12] MEDS ORDERED: METHYLERGONOVINE MALEATE 0.2MG/ML 1ML VIAL IV STA (19:50)
[2022-12-12] MEDS ORDERED: OXYTOCIN INJ 10UNITS/ML 1ML VIAL IM ONE (20:10)
[2022-12-12 20:32] LABS: ALBUMIN 2.9 G/DL (3.2-5.2); ALKALINE PHOSPHATASE 122 U/L (46-116); ALT/SGPT 13 U/L (7.0-40); AST/SGOT 46 U/L (<34); BILIRUBIN,TOTAL < 0.2 MG/DL (0.3-1.2); BLOOD UREA NITROGEN < 5 MG/DL (9-23); CALCIUM LEVEL 8.8 MG/DL (8.5-10.1); CARBON DIOXIDE LEVEL 22 MMOL/L (20-31); CHLORIDE LEVEL 103 MMOL/L (98-107); CREATININE FOR GFR 0.45 MG/DL (0.55-1.30); GLOMERULAR FILTRATION RATE > 60.0 (>60); GLUCOSE, FASTING 112 MG/DL (60-100); MAGNESIUM LEVEL 1.7 MG/DL (1.8-2.4); POTASSIUM SERUM 4.4 MMOL/L (3.5-5.1); SODIUM LEVEL 135 MMOL/L (136-145)
[2022-12-12 21:59] LABS: BASO # 0.1 10^3/uL (0.0-0.2); BASO % 0.3 % (0.0-1.0); EOS # 0.1 10^3/uL (0.0-0.5); EOS % 0.3 % (0.0-3.0); HEMATOCRIT 26.2 % (36.0-47.0); LYMPH # 1.5 10^3/uL (1.5-5.0); LYMPH % 7.2 % (24.0-44.0); MEAN CORPUSCULAR HEMOGLOBIN 21.4 pg (27.0-33.0); MEAN CORPUSCULAR HGB CONC 30.5 g/dl (32.0-36.5); MEAN CORPUSCULAR VOLUME 70.1 fl (80.0-96.0); MONO # 0.9 10^3/uL (0.0-0.8); MONO % 4.5 % (2.0-8.0); NEUTROPHILS # 17.9 10^3/uL (1.5-8.5); NEUTROPHILS % 86.6 % (36.0-66.0); PLATELET COUNT, AUTOMATED 330 10^3/uL (150-450); RED BLOOD COUNT 3.74 10^6/uL (4.00-5.40); WHITE BLOOD COUNT 20.7 10^3/uL (4.0-10.0)
[2022-12-12] MEDS ORDERED: FERR325T3 PO (22:26)
[2022-12-12] MEDS ORDERED: METH0.2T53 PO (22:26)
[2022-12-13] VITALS (11 sets, daily range): BP systolic 115–151; BP diastolic 55–77
[2022-12-13] MEDS ORDERED: HOME MED LIST COMPLETE! XX SCH (00:35)
[2022-12-13] MEDS ORDERED: IBUPROFEN 800 MG TAB PO PRN (01:30)
[2022-12-13] MEDS ORDERED: LR 1,000 ML IV SCH (01:30)
[2022-12-13] MEDS ORDERED: ACETAMINOPHEN TAB 650MG DOSE (2X325MG) PO PRN (01:30)
[2022-12-13] MEDS ORDERED: NICOTINE 21MG/24HR 1 EA TRANSDERMAL TD ONE (02:40)
[2022-12-13 07:45] LABS: RSV AMPLIFICATION NEGATIVE (NEGATIVE)
[2022-12-13 08:11] LABS: HEMATOCRIT 22.1 % (36.0-47.0); MEAN CORPUSCULAR HEMOGLOBIN 21.9 pg (27.0-33.0); MEAN CORPUSCULAR HGB CONC 30.8 g/dl (32.0-36.5); MEAN CORPUSCULAR VOLUME 71.3 fl (80.0-96.0); PLATELET COUNT, AUTOMATED 312 10^3/uL (150-450)
[2022-12-13 08:17] LABS: HEMOGLOBIN 6.8 g/dl (12.0-15.5)
[2022-12-13] MEDS ORDERED: medroxyPROGESTERone ACET IM SUSP 150 MG/ML VIAL IM ONE (12:00)
[2022-12-13] MEDS ORDERED: IBUP80TA PO (15:03)
== END 2022-12-13 16:40 | disposition home or self-care (01) ==
LOC: M ED 19:16 → M ED INP 19:17 → M PED 12-13 02:02
PROVIDERS: ADMIT Obstetrics & Gynecology; ATTEND Obstetrics & Gynecology
DX: O03.6 Delayed or excessive hemorrhage following complete or unspecified spontaneous abortion (principal); D62 Acute posthemorrhagic anemia; N96 Recurrent pregnancy loss; Z88.0 Allergy status to penicillin; Z91.040 Latex allergy status; Z91.030 Bee allergy status; F17.210 Nicotine dependence, cigarettes, uncomplicated
CPT/HCPCS: 36415; 36430; 51701; 76856; 80053; 83735; 85025; 85027; 86850; 86920; 87631; 88305; 93976; 96372; 96374; 99285; J1050; J2210; J2590; P9016

== ENCOUNTER 2023-08-18 19:01 | Emergency (ER) | payer OTHER ==
[~2023-08-18] VITALS: Ht 162.6 cm; Wt 79.7 kg
[~2023-08-18 19:01] MED LIST changes: +FERR325T3 PO; +METH0.2T53 PO; +RALTEGRAVIR 400 MG TAB (ISENTRESS) PO SCH; +TRUVADA 200MG/300MG TABLET PO SCH
[2023-08-18] MEDS ORDERED: ACETAMINOPHEN TAB 650MG DOSE (2X325MG) PO ONE (21:35)
[2023-08-18 22:03] LABS: BASO # 0.1 10^3/uL (0.0-0.2); BASO % 0.9 % (0.0-1.0); EOS # 0.2 10^3/uL (0.0-0.5); EOS % 1.5 % (0.0-3.0); HEMATOCRIT 35.5 % (36.0-47.0); HEMOGLOBIN 10.9 g/dl (12.0-15.5); LYMPH # 3.2 10^3/uL (1.5-5.0); LYMPH % 31.5 % (24.0-44.0); MEAN CORPUSCULAR HGB CONC 30.7 g/dl (32.0-36.5); MEAN CORPUSCULAR VOLUME 74.9 fl (80.0-96.0); MONO # 0.7 10^3/uL (0.0-0.8); NEUTROPHILS # 5.9 10^3/uL (1.5-8.5); NEUTROPHILS % 58.8 % (36.0-66.0); PLATELET COUNT, AUTOMATED 408 10^3/uL (150-450); RED BLOOD COUNT 4.74 10^6/uL (4.00-5.40); WHITE BLOOD COUNT 10.1 10^3/uL (4.0-10.0)
[2023-08-18 22:28] LABS: ALBUMIN 3.8 G/DL (3.2-5.2); ALKALINE PHOSPHATASE 96 U/L (46-116); ALT/SGPT 15 U/L (7.0-40); AST/SGOT 15 U/L (<34); BILIRUBIN,TOTAL 0.2 MG/DL (0.3-1.2); BLOOD UREA NITROGEN 7 MG/DL (9-23); CALCIUM LEVEL 8.9 MG/DL (8.5-10.1); CARBON DIOXIDE LEVEL 26 MMOL/L (20-31); CHLORIDE LEVEL 104 MMOL/L (98-107); CREATININE FOR GFR 0.56 MG/DL (0.55-1.30); GLOMERULAR FILTRATION RATE > 60.0 (>60); GLUCOSE, FASTING 89 MG/DL (60-100); POTASSIUM SERUM 4.2 MMOL/L (3.5-5.1); SODIUM LEVEL 139 MMOL/L (136-145); TOTAL PROTEIN 7.1 G/DL (5.7-8.2)
[2023-08-18 22:35] LABS: HEPATITIS B SURFACE ANTIBODY NEGATIVE (POSITIVE)
[2023-08-18 22:52] LABS: HCG, SERUM QUALITATIVE NEGATIVE (NEGATIVE)
[2023-08-18 23:00] LABS: HIV 1&2 SCREEN NEGATIVE (NEGATIVE)
[2023-08-18 23:09] LABS: HEPATITIS C VIRUS ABY INDEX 0.05 INDEX (<0.8)
[2023-08-18 23:28] LABS: CHLAMYDIA DNA AMPLIFICATION NEGATIVE (NEGATIVE); GC DNA AMPLIFICATION NEGATIVE (NEGATIVE)
[2023-08-18] MEDS ORDERED: EXPOSURE KIT-ADULT 7 DAY SUPPLY PO ONE (23:35)
[2023-08-18] MEDS ORDERED: BOOSTRIX VACCINE (TETANUS/DIPHTH/ACEL. PERTUSSIS) 0.5ML SYR IM.IMMUN ONE (23:35)
[2023-08-18] MEDS ORDERED: AZITHROMYCIN 250MG TABLET PO ONE (23:35)
[2023-08-18] MEDS ORDERED: LIDOCAINE 1% SDV 5ML VIAL DILUENT ONE (23:35)
[2023-08-18] MEDS ORDERED: cefTRIAXone 500MG VIAL IM ONE (23:35)
[2023-08-18] MEDS ORDERED: metroNIDAZOLE (FLAGYL) 500MG TABLET PO ONE (23:35)
[2023-08-18] MEDS ORDERED: HEPATITIS B VACCINE 20MCG/ML 1ML SYRINGE (ADULT DOSE) IM.IMMUN ONE (23:35)
[2023-08-18] MEDS ORDERED: EMTR1TAB16 PO (23:38)
[2023-08-18] MEDS ORDERED: RALT40TA PO (23:38)
[2023-08-18] MEDS ORDERED: ONDA4TAB6 PO (23:38)
[2023-08-18] MEDS ORDERED: RALTEGRAVIR 400 MG TAB (ISENTRESS) PO ONE (23:45)
[2023-08-18] MEDS ORDERED: TRUVADA 200MG/300MG TABLET PO ONE (23:45)
[2023-08-19] MEDS ORDERED: METOCLOPRAMIDE 10MG TAB PO ONE (01:10)
[2023-08-19 02:58] VITALS: BP 120/68; TEMP 97.4; O2SAT 100
== END 2023-08-19 02:59 | disposition home or self-care (01) ==
LOC: M ED 19:01
DX: T76.21XA Adult sexual abuse, suspected, initial encounter (principal); Y92.410 Unspecified street and highway as the place of occurrence of the external cause; Y93.01 Activity, walking, marching and hiking; F41.1 Generalized anxiety disorder; F32.A Depression, unspecified; F17.200 Nicotine dependence, unspecified, uncomplicated; F12.90 Cannabis use, unspecified, uncomplicated; Z88.0 Allergy status to penicillin; Z91.030 Bee allergy status
CPT/HCPCS: 80053; 84703; 85025; 86706; 86780; 86803; 87340; 87389; 87661; 87810; 87850; 90471; 90715; 90746; 96372; 99283; J0696

== ENCOUNTER → 2023-12-07 | Outpatient (CLI) | payer OTHER ==
[~2023-12-07] MED LIST changes: +EMTR1TAB16 PO; +ONDA4TAB6 PO; +RALT40TA PO; -RALTEGRAVIR 400 MG TAB (ISENTRESS) PO SCH; -TRUVADA 200MG/300MG TABLET PO SCH
== END ==
LOC: M WHC 08:36
PROVIDERS: ATTEND Advanced Practice Midwife
DX: O09.892 Supervision of other high risk pregnancies, second trimester (principal)

== ENCOUNTER → 2024-01-11 | Outpatient (CLI) | payer OTHER | LOC: M RAD 11:33 | PROVIDERS: ATTEND Obstetrics & Gynecology | DX: O44.02 Complete placenta previa NOS or without hemorrhage, second trimester (principal) ==

== ENCOUNTER 2024-02-15 11:01 | Outpatient (CLI) | payer OTHER ==
[~2024-02-15] VITALS: Ht 162.6 cm; Wt 86.4 kg
[2024-02-15 11:19] VITALS: BP 111/63
[2024-02-15] MEDS ORDERED: ACET325C5 PO (11:25)
[2024-02-15] MEDS ORDERED: HOME MED LIST COMPLETE! XX SCH (11:30)
== END 2024-02-15 14:30 | disposition home or self-care (01) ==
LOC: M LDO 11:01
PROVIDERS: ATTEND Advanced Practice Midwife
DX: O23.593 Infection of other part of genital tract in pregnancy, third trimester (principal); Z3A.28 28 weeks gestation of pregnancy
CPT/HCPCS: 59025; 81001; G0463

== ENCOUNTER 2024-03-12 19:00 | Outpatient (CLI) | payer OTHER ==
[~2024-03-12] VITALS: Ht 162.6 cm; Wt 84.4 kg
[~2024-03-12 19:00] MED LIST changes: +ACET-897 PO; +ACET325C5 PO; +ONDA-282 PO; -ONDA4TAB6 PO
[2024-03-12 19:18] VITALS: BP 111/68
[2024-03-12] MEDS: BETAMETHASONE SOLUSPAN 6MG/ML 5ML VIAL IM ONE (19:32)
== END 2024-03-12 19:40 | disposition home or self-care (01) ==
LOC: M LDO 19:00
PROVIDERS: ATTEND Advanced Practice Midwife
DX: O46.93 Antepartum hemorrhage, unspecified, third trimester (principal); Z3A.32 32 weeks gestation of pregnancy
CPT/HCPCS: 96372; J0702

== ENCOUNTER → 2024-04-13 | Outpatient (REF) | payer OTHER | LOC: M PLALAB 08:43 | PROVIDERS: ATTEND Obstetrics & Gynecology | DX: Z53.9 Procedure and treatment not carried out, unspecified reason (principal) ==

== ENCOUNTER → 2024-04-17 | Outpatient (REF) | payer OTHER | LOC: M PLALAB 11:07 | PROVIDERS: ATTEND Advanced Practice Midwife | DX: Z36.85 Encounter for antenatal screening for Streptococcus B (principal); Z3A.36 36 weeks gestation of pregnancy ==

== ENCOUNTER → 2024-12-20 | Outpatient (REF) | payer OTHER, MEDICAID | LOC: M LAB REF 15:40 | PROVIDERS: ATTEND Physician Assistant | DX: B34.9 Viral infection, unspecified (principal) ==

== ENCOUNTER → 2025-02-21 | Outpatient (CLI) | payer OTHER | LOC: M WHC 11:59 | PROVIDERS: ATTEND Specialist | DX: Z34.82 Encounter for supervision of other normal pregnancy, second trimester (principal) ==

== ENCOUNTER → 2025-02-26 | Outpatient (REF) | payer OTHER | LOC: M LAB REF 12:06 | PROVIDERS: ATTEND Physician Assistant | DX: J06.9 Acute upper respiratory infection, unspecified (principal) ==

== ENCOUNTER 2025-04-18 03:38 | Inpatient (IN) | payer OTHER, MEDICAID ==
[~2025-04-18] VITALS: Ht 162.6 cm; Wt 90.7 kg
[2025-04-18 03:43] VITALS: BP 123/72; O2SAT 98
[2025-04-18] MEDS ORDERED: HOME MED LIST COMPLETE! XX SCH (03:50)
[2025-04-18] MEDS ORDERED: LIDOCAINE 1% MDV 20 ML VIAL INFIL PRN (04:00)
[2025-04-18] MEDS ORDERED: CARBOPROST TROMETHAMINE 250 MCG/ML AMP IM PRN (04:00)
[2025-04-18] MEDS ORDERED: METHYLERGONOVINE MALEATE 0.2 MG/ML 1 ML VIAL IM PRN (04:00)
[2025-04-18] MEDS ORDERED: OXYTOCIN DRIP 30 UNITS in IV 1 EA IV PRN (04:00)
[2025-04-18] MEDS ORDERED: OXYTOCIN INJ 10UNITS/ML 1ML VIAL IM PRN (04:00)
[2025-04-18] MEDS ORDERED: TRANEXAMIC ACID INJection 1,000 MG in NS 100 ML IV PRN (04:00)
[2025-04-18] MEDS: LACTATED RINGER'S 1000 ML IV STA (04:09)
[2025-04-18] MEDS: BETAMETHASONE SOLUSPAN 6 MG/ML 5 ML VIAL IM SCH (04:14)
[2025-04-18 04:45] LABS: PLATELET COUNT, AUTOMATED 373 10^3/uL (150-450)
[2025-04-18] MEDS: LR 1,000 ML IV SCH (04:45)
[2025-04-18 04:58] LABS: INR 0.84
[2025-04-18 05:04] VITALS: BP 103/57
[2025-04-18 05:16] LABS: AMPHETAMINES URINE REFLEX NEGATIVE (NEGATIVE); BARBITURATES URINE REFLEX NEGATIVE (NEGATIVE); BENZODIAZEPINES URINE REFLEX NEGATIVE (NEGATIVE); CANNABINOIDS URINE REFLEX NEGATIVE (NEGATIVE); COCAINE METABOLITE URINE REFLE NEGATIVE (NEGATIVE); METHADONE URINE REFLEX NEGATIVE (NEGATIVE); OPIATES URINE REFLEX NEGATIVE (NEGATIVE); PHENCYCLIDINE URINE REFLEX NEGATIVE (NEGATIVE)
[2025-04-18 05:27] LABS: HIV 1&2 SCREEN NEGATIVE (NEGATIVE)
[2025-04-18 05:35] LABS: HEPATITIS C VIRUS ABY INDEX 0.08 INDEX (<0.8)
[2025-04-18 07:32] VITALS: BP 99/55
[2025-04-18 08:43] VITALS: BP 108/65
== END 2025-04-18 10:05 | disposition home or self-care (01) | DRG 566 ==
LOC: M LDO 03:38 → M LDI 04:09
PROVIDERS: ADMIT Advanced Practice Midwife; ATTEND Advanced Practice Midwife
DX: O45.92 Premature separation of placenta, unspecified, second trimester (principal); F17.210 Nicotine dependence, cigarettes, uncomplicated; O99.332 Smoking (tobacco) complicating pregnancy, second trimester; O32.1XX0 Maternal care for breech presentation, not applicable or unspecified; Z88.0 Allergy status to penicillin; Z88.1 Allergy status to other antibiotic agents; Z91.040 Latex allergy status; Z87.59 Personal history of other complications of pregnancy, childbirth and the puerperium; Z3A.27 27 weeks gestation of pregnancy

== ENCOUNTER 2025-04-19 08:18 | Outpatient (CLI) | payer OTHER ==
[~2025-04-19] VITALS: Ht 162.6 cm; Wt 87.8 kg
[2025-04-19] MEDS: BETAMETHASONE SOLUSPAN 6 MG/ML 5 ML VIAL IM ONE (08:55)
== END 2025-04-19 08:50 | disposition home or self-care (01) ==
LOC: M LDO 08:18
PROVIDERS: ATTEND Advanced Practice Midwife
DX: O45.92 Premature separation of placenta, unspecified, second trimester (principal); O99.332 Smoking (tobacco) complicating pregnancy, second trimester; F17.210 Nicotine dependence, cigarettes, uncomplicated; Z88.0 Allergy status to penicillin; Z88.1 Allergy status to other antibiotic agents; Z91.040 Latex allergy status; Z87.59 Personal history of other complications of pregnancy, childbirth and the puerperium; Z3A.27 27 weeks gestation of pregnancy
CPT/HCPCS: 59025; 96372; G0463; J0702

== ENCOUNTER 2025-04-28 10:57 | Inpatient (IN) | payer OTHER ==
[~2025-04-28] VITALS: Ht 162.6 cm; Wt 88.0 kg
[2025-04-28] VITALS (7 sets, daily range): BP systolic 117–136; BP diastolic 56–77; O2SAT 100
[2025-04-28 12:03] LABS: CORD GAS ABE V 0.4; CORD GAS HCO3 V 23.6 MMOL/L; CORD GAS O2 SAT V 83.5 %; CORD GAS PCO2 V 33.6 mmHg; CORD GAS PH V 7.464 UNITS; CORD GAS PO2 V 33.4 mmHg; CORD GAS SBC V 24.5 MMOL/L; CORD GAS TCO2 V 24.6 MMOL/L
[2025-04-28 12:05] LABS: CORD GAS ABE A -3.2; CORD GAS HCO3 A 21.8 MMOL/L; CORD GAS O2 SAT A 43.9 %; CORD GAS PCO2 A 39.1 mmHg; CORD GAS PH A 7.364 UNITS; CORD GAS PO2 A 17.5 mmHg; CORD GAS SBC A 20.6 MMOL/L; CORD GAS TCO2 A 23.0 MMOL/L
[2025-04-28] MEDS ORDERED: DOCUSATE SODIUM 100 MG CAPSULE PO PRN (12:30)
[2025-04-28] MEDS ORDERED: IBUPROFEN 600 MG TAB PO PRN (12:30)
[2025-04-28] MEDS ORDERED: ACETAMINOPHEN 325 MG TAB PO PRN (12:30)
[2025-04-28] MEDS ORDERED: MOM 30 ML SUSPENSION UDC PO PRN (12:30)
[2025-04-28] MEDS ORDERED: CALCIUM CARBONATE 500 MG CHEW U/D PO PRN (12:30)
[2025-04-28] MEDS ORDERED: ACETAMINOPHEN 500 MG TAB PO PRN (12:30)
[2025-04-28] MEDS ORDERED: METHYLERGONOVINE MALEATE 0.2 MG TAB PO PRN (12:30)
[2025-04-28] MEDS ORDERED: ANUSOL HC CREAM 30 GM TOP PRN (12:30)
[2025-04-28] MEDS ORDERED: RHOGAM 300MCG (1500IU) INJ IM SCH (12:30)
[2025-04-28] MEDS ORDERED: DIBUCAINE 1% OINTMENT 30 GM TOP PRN (12:30)
[2025-04-28] MEDS ORDERED: IBUPROFEN 800 MG TAB PO PRN (12:30)
[2025-04-28] MEDS ORDERED: OXYTOCIN DRIP 30 UNITS in IV 1 EA IV STA (12:39)
[2025-04-28] MEDS: OXYTOCIN DRIP 30 UNITS in IV 1 EA IV SCH (12:51)
[2025-04-28 13:10] LABS: PLATELET COUNT, AUTOMATED 403 10^3/uL (150-450)
[2025-04-28 14:03] LABS: HIV 1&2 SCREEN NEGATIVE (NEGATIVE)
[2025-04-28 14:11] LABS: HEPATITIS C VIRUS ABY INDEX < 0.02 INDEX (<0.8)
[2025-04-29] MEDS ORDERED: PRENATAL VITAMINS CHEWABLE TABLET PO SCH (09:00)
[2025-04-30] MEDS ORDERED: MEASLES,MUMPS,RUBELLA VACCINE INJ (MMR-II) SC.IMMUN ONE (09:00)
== END 2025-04-28 16:40 | disposition home or self-care (01) | DRG 560 ==
LOC: M LDO 10:57 → M LDI 11:39 → M OBS 13:25
PROVIDERS: ADMIT Obstetrics & Gynecology; ATTEND Obstetrics & Gynecology
PROC: 10E0XZZ Delivery of Products of Conception, External Approach (ICD-10-PCS; principal; 2025-04-28)
DX: O42.113 Preterm premature rupture of membranes, onset of labor more than 24 hours following rupture, third trimester (principal); F17.210 Nicotine dependence, cigarettes, uncomplicated; Z3A.28 28 weeks gestation of pregnancy; O99.334 Smoking (tobacco) complicating childbirth; Z37.0 Single live birth

== ENCOUNTER → 2025-05-28 | Outpatient (REF) | payer OTHER, MEDICAID ==
[2025-05-28 17:53] LABS: RSV AMPLIFICATION NEGATIVE (NEGATIVE)
== END ==
LOC: M LAB REF 16:55
PROVIDERS: ATTEND Physician Assistant Medical
DX: B34.9 Viral infection, unspecified (principal)

== ENCOUNTER → 2025-07-22 | Outpatient (REF) | payer OTHER | LOC: M LAB REF 16:58 | PROVIDERS: ATTEND Physician Assistant Medical | DX: B34.9 Viral infection, unspecified (principal) ==

== ENCOUNTER → 2025-08-20 | Day surgery (SDC) | payer OTHER ==
[~2025-08-20] VITALS: Ht 162.6 cm; Wt 95.7 kg
[~2025-08-20] MED LIST changes: +CONC18TA14 PO; +NORE1TAB73 PO
== END | disposition home or self-care (01) ==
LOC: M SDC 08:29
PROVIDERS: ATTEND Obstetrics & Gynecology
DX: Z30.2 Encounter for sterilization (principal); Z53.29 Procedure and treatment not carried out because of patient's decision for other reasons